=== PATIENT | male | born 1980 | race Caucasian/White ===

== ENCOUNTER 2021-02-09 22:49 | Emergency (ER) | payer OTHER ==
[~2021-02-09] VITALS: Ht 172.7 cm; Wt 99.8 kg
[2021-02-10] MEDS ORDERED: HYDROXYZINE HCL50 MG PO (00:21)
[2021-02-10 00:24] LABS: URINE BILIRUBIN 1+ (Negative); URINE BLOOD NEGATIVE (Negative); URINE CLARITY CLEAR; URINE COLOR YELLOW; URINE GLUCOSE-RANDOM* NEGATIVE (Negative); URINE KETONES TRACE (Negative); URINE LEUKOCYTES-REFLEX NEGATIVE (Negative); URINE NITRITE-REFLEX NEGATIVE (Negative); URINE PROTEIN (DIPSTICK) NEGATIVE (Negative); URINE SPECIFIC GRAVITY 1.025 (1.005-1.035); URINE UROBILINOGEN >= 8.0 E.U./dl (0.2-1.0)
[2021-02-10 00:36] VITALS: BP 124/76
== END 2021-02-10 00:38 | disposition home or self-care (01) ==
LOC: ER 22:49
PROVIDERS: Student in an Organized Health Care Education/Training Program
DX: F11.93 Opioid use, unspecified with withdrawal (principal)